=== PATIENT | male | born 1940 | race Caucasian/White ===

== ENCOUNTER → 2016-12-23 | Outpatient (CLI) | payer MEDICARE, OTHER ==
[2016-12-23 17:34] LABS: ANION GAP 13.5 MEQ/L (3-15)
== END ==
LOC: LAB 16:02
PROVIDERS: ATTEND Internal Medicine
DX: I10 Essential (primary) hypertension (principal); R26.9 Unspecified abnormalities of gait and mobility; R41.3 Other amnesia; R26.89 Other abnormalities of gait and mobility
CPT/HCPCS: 36415; 80048

== ENCOUNTER → 2016-12-24 | Outpatient (CLI) | payer MEDICARE, OTHER | LOC: RAD 07:38 | PROVIDERS: ATTEND Internal Medicine | DX: Z53.9 Procedure and treatment not carried out, unspecified reason (principal) ==

== ENCOUNTER → 2016-12-30 | Outpatient (CLI) | payer MEDICARE, OTHER | LOC: RAD 06:21 | PROVIDERS: ATTEND Internal Medicine | DX: R26.9 Unspecified abnormalities of gait and mobility (principal); R41.3 Other amnesia; R26.89 Other abnormalities of gait and mobility | CPT/HCPCS: 70553; 72141; A9579 ==